=== PATIENT | female | born 1975 | race Caucasian/White ===

== ENCOUNTER 2023-11-17 20:38 | Emergency (ER) | payer OTHER, SELFPAY ==
[2023-11-17 20:47] VITALS: BP 136/83; PULSE 104; RESP 20; TEMP 37; O2SAT 100; BMI 25.8
--- NOTE | 2023-11-17 21:45 | W.ED.ABDPA2 ---
HPI - Abdominal Pain General: Chief Complaint: Abdominal Pain Stated Complaint: believes kidney infection Time Seen by Provider: 11/17/23 21:43 History of Present Illness: B presents to the ER thinking she has a kidney infection. Patient is reporting bilateral flank pain that started in her bladder goes to both sides right worse than left, and general aches and myalgias. Patient reports very frequent UTIs and bladder infections and this feels like similar to those in the past. Review of Systems General: Reports: 10 or more systems reviewed and unremarkable except in HPI and below PFSH ED PFSH: Medical History Acute sinusitis Physical Exam Const: COMMON NORMALS: no acute distress, average body habitus, patient oriented x3, no limitations, healthy appearing, alert and well nourished HENMT: COMMON NORMALS: normocephalic, atraumatic, hearing grossly normal bilaterally, external ears normal, Normal external nose present and moist oral mucous membranes HEAD & SCALP: normocephalic and atraumatic NOSE: Normal external nose present EXTERNAL EAR: Yes external ears normal Neck/C-Spine: COMMON NORMALS: no JVD Chest: COMMONS NORMALS: normal inspection of the chest and normal palpation of entire chest wall Resp: COMMON NORMALS: normal respiratory effort, No retractions, No use of accessory muscles and clear to auscultation bilaterally AUSCULTATION: clear to auscultation bilaterally Cardio: COMMON NORMALS: no JVD, regular rate, regular rhythm, S1 normal heart sound present, S2 normal heart sound present, No gallops present (Cardio), No clicks present (Cardio), No murmurs present (Cardio) and No rub (Cardio) RATE: regular rate RHYTHM: regular rhythm HEART SOUNDS: S1 normal heart sound present and S2 normal heart sound present GI: COMMON NORMALS: Normal to inspection, nondistended, normoactive bowel sounds present, Soft to palpation, No hepatosplenomegaly present and no masses; negative for non-tender (Mildly tender to palpation suprapubic region) PALPATION: Yes Soft to palpation and Yes No hepatosplenomegaly present Neuro: COMMON NORMALS: patient oriented x3 SENSORIUM/ORIENTATION: Yes alert Course Vital Signs: Vital signs: Vital Signs Temperature 98.6 F 11/17/23 20:47 Pulse Rate 104 H 11/17/23 20:47 Respiratory Rate 20 H 11/17/23 20:47 Blood Pressure 136/83 11/17/23 20:47 Pulse Oximetry 100 11/17/23 20:47 Oxygen Delivery Me thod Room Air 11/17/23 20:47 MDM - Abdominal Pain Medical Decision Making Patient had urinalysis which showed obvious signs of infection, a bladder scan was performed, patient was given 500 mg Cipro here and a prescription will be sent home to her pharmacy for further treatment. Patient will be discharged home. Medical Records I reviewed the patient's medical records. Lab Data I reviewed the patient's lab results. Labs/Radiology: Laboratory Results Urine Color Yellow (Yellow) 11/17/23 21:39 Urine Appearance Cloudy (CLEAR) A 11/17/23 21:39 Urine pH 5 (5-7) 11/17/23 21:39 Ur Specific [place] 1.020 (1.005-1.030) 11/17/23 21:39 Urine Protein Trace (Negative) 11/17/23 21:39 Urine Glucose (UA) Norm (Normal) 11/17/23 21:39 Urine Ketones 1+ (Negative) H 11/17/23 21:39 Urine Blood 2+ (Negative) H 11/17/23 21:39 Urine Nitrate Positive (Negative) A 11/17/23 21:39 Urine Bilirubin Neg (Negative) 11/17/23 21:39 Urine Urobilinogen Neg mg/dL (Negative) 11/17/23 21:39 Ur Leukocyte Esterase 2+ (Negative) H 11/17/23 21:39 Urine RBC 5-10 /hpf (0-2) H 11/17/23 21:39 Urine WBC 15-25 /hpf (0-5) H 11/17/23 21:39 Ur Squamous Epith Cells 3-5 /hpf (0-5) 11/17/23 21:39 Amorphous Sediment Not Reportable 11/17/23 21:39 Urine Bacteria 3+ /hpf (NONE) H 11/17/23 21:39 Urine Mucus Trace /hpf 11/17/23 21:39 All radiology interpretation(s) finalized by discharge Discharge Plan Discharge Patient Disposition: Home Clinical Impression: Urinary tract infection Qualifiers: Urinary tract infection type: acute pyelonephritis Qualified Code(s): N10 - Acute pyelonephritis Condition: Stable Prescriptions: New ciprofloxacin HCl 500 mg tablet 500 mg PO Q12H Qty: 20 0RF No Action temazepam 15 mg capsule 15 - 30 mg PO .qhs Qty: 45 1RF ibuprofen [IBU] 800 mg tablet 800 mg PO Q8H Discharge Orders: Discharge ED (Routine); Ordered 11/17/23 Ordered By: Georges Dexter Referrals: Crescencio Best, [Primary Care Provider] - 1 week Patient Instructions: Kidney Infection (ED) Activity Restrictions/Additional Instructions: Your urinalysis showed you do have signs of a urinary tract infection suggestive of a kidney infection. You are given Cipro here in the ER to start your antibiotic regimen. A prescription has been sent to the pharmacy of your choice. Please take these medicines as directed. Please follow-up with your family practice physician within next 7 to 10 days for further evaluation and treatment. Coding Level of Care Code ED Continuous [employer] for Jairo Lyons
[2023-11-17 21:56] LABS: Add Urine Microscopic? YES; Bilirubin Urine Neg (Negative); Blood Urine 2+ (Negative); Glucose Urine UA Norm (Normal); Ketones Urine 1+ (Negative); Leukocyte Esterase Urine 2+ (Negative); Nitrate Urine Positive (Negative); Protein Urine Trace (Negative); Urine Appearance Cloudy (CLEAR); Urine Color Yellow (Yellow); Urobilinogen Urine Neg (Negative); pH Urine 5 (5-7)
[2023-11-17 21:57] LABS: Add Urine Culture? Yes; Bacteria Urine 3+ /hpf; Mucus Urine TRACE /hpf; WBC Urine 15-25 /hpf (0-5)
[2023-11-17] MEDS: ciprofloxacin 500 mg Tablet PO (22:50)
[2023-11-17 22:55] VITALS: BP 136/83; PULSE 104; RESP 20; TEMP 37; O2SAT 100
== END 2023-11-17 22:56 | disposition home or self-care (01) ==
PROVIDERS: Emergency Provider Emergency Medicine; PCP Family Medicine
DX: N10 Acute pyelonephritis (principal)
CPT/HCPCS: 51798; 81001; 87077; 87086; 87186; 99283